=== PATIENT | female | born 1995 | race African-American/Black ===

== ENCOUNTER 2016-12-11 19:53 | Emergency (ER) | payer MEDICAID ==
[~2016-12-11] VITALS: Ht 157.5 cm; Wt 104.0 kg
[2016-12-11 20:05] VITALS: BP 145/81
== END 2016-12-11 21:45 | disposition left against medical advice (07) ==
LOC: ER 19:53
DX: R06.02 Shortness of breath (principal); Z53.21 Procedure and treatment not carried out due to patient leaving prior to being seen by health care provider
CPT/HCPCS: Z7610 ×2